=== PATIENT | female | born 1965 | race Caucasian/White ===

== ENCOUNTER → 2016-11-18 | Outpatient (CLI) | payer OTHER ==
--- NOTE | 2016-11-18 16:41 | MAMMOGRAPHY REPORT ---
BILATERAL DIGITAL SCREENING MAMMOGRAM TOMOSYNTHESIS WITH CAD: 11/18/2016 CLINICAL HISTORY: Routine screening. TECHNIQUE: Breast tomosynthesis in addition to standard 2D mammography was performed. Current study was also evaluated with a Computer Aided Detection (CAD) system. COMPARISON: Comparison is made to exams dated: 11/05/2015 mammogram, 10/26/2014 mammogram, 10/19/2013 ma mmogram, 06/23/2012 mammogram, 06/23/2011 mammogram, and 06/21/2010 mammogram - [facility]. BREAST COMPOSITION: The tissue of both breasts is extremely dense, which lowers the sensitivity of m ammography. FINDINGS: The breast parenchymal pattern is similar to prior mammograms. No new suspicious mass, arc hitectural distortion or cluster of microcalcifications is seen. IMPRESSION: ACR BI-RADS CATEGORY 1: NEGATIVE There is no mammographic evidence of malignancy. A 1 year screening mammogram is recommended. The pa tient will receive written notification of the results. Approximately 10% of breast cancers are not detected with mammography. A negative mammographic report should not delay biopsy if a clinically suggestive mass is present. Aliya Shin M.D. ay/:11/18/2016 15:54:48 Management Technician: Milind WILLIS(R)(M), [facility] letter sent: Normal 1/2 BI-RADS Code: ACR BI-RADS Category 1: Negative
== END | disposition home or self-care (01) ==
LOC: C.MAMM 10:57
PROVIDERS: ATTEND Internal Medicine
DX: Z12.31 Encounter for screening mammogram for malignant neoplasm of breast (principal)

== ENCOUNTER 2017-04-29 21:17 | Emergency (ER) | payer OTHER ==
[~2017-04-29] VITALS: Ht 168.9 cm; Wt 64.6 kg
[2017-04-29 22:02] VITALS: TEMP 36.5; Ht 168.9 cm; Wt 64.6 kg
[2017-04-29] MEDS ORDERED: XYLOCAINE 1%/SOD BICARB 20 ML VIAL INFIL ONE (22:45)
[2017-04-30 00:12] VITALS: BP 118/69; PULSE 68; O2SAT 99
--- NOTE | 2017-04-30 03:53 | EMERGENCY ROOM VISIT NOTE ---
ED Visit Note First contact with patient: 22:39 CHIEF COMPLAINT: Finger laceration HISTORY OF PRESENT ILLNESS: This 51 patient presents to the emergency department with family after cutting the right second finger and has abrasions to the hand after accidentally slicing it on building material. The bleeding has not stopped. Denies weakness or numbness of the finger. The patient has full range of motion of the fingers. The patient rates the pain as mild and 2/ 10. The patient denies any other injuries. The patient's tetanus shot is up to date. REVIEW OF SYSTEMS: A 6 system review of systems was completed with positives and pertinent negatives listed in the HPI. ALLERGIES: none MEDICATIONS: Reviewed PMH: Breast cancer SOCIAL HISTORY: No drug use PHYSICAL EXAM: Vital Signs: Reviewed Nurse's notes, vital signs stable. GENERAL : Pleasant female, in no acute distress, well developed, well nourished. SKIN: There is a 3 cm long laceration on the distal aspect of the right second finger. The edges gape apart with traction. There is no foreign material in the wound and it looks clean. There is bleeding. No deep structures such as tendons , bones, or significant blood vessels are seen in the base of the wound. Extension and flexion of the finger is full and strong. Full range of motion of the wrist and other fingers. Capillary refill less than 2 seconds. Normal sensation to light and sharp touch. Patient also superficial abrasions to the third finger and dorsal aspect of the hand without signs of infection. EMERGENCY DEPARTMENT COURSE: I examined the patient. Using sterile technique the wound was cleansed with Betadine. 2 ml of 1% buffered lidocaine was used to perform a digital block to anesthetize the patient. The area was sterilely draped. Once the patient was anesthetized, the wound was copiously irrigated under pressure with sterile saline. The wound was explored and there were no deep structures injured. The laceration was repaired using 6 simple interrupted 5-0 nylon sutures. The patient tolerated the procedure well. Hemostasis was achieved. The area was cleaned with sterile saline and dressed with bacitracin ointment and bandage. Abrasions are cleansed and dressed by nursing. The patient was discharged home in good condition. DIAGNOSIS: #1 finger laceration, second right hand #2 right hand abrasions DISCHARGE INSTRUCTIONS & TREATMENT: As below Allergies Coded Allergies: Adhesives (Verified Allergy, Mild, RASH, 04/28/17) skin irritation with adhesive tape Vital Signs Date Time Temp Pulse Resp B/P (MAP) Pulse Ox O2 Delivery O2 Flow Rate FiO2 04/30/17 00:12 68 118/69 99 04/29/17 22:02 36.5 64 18 111/65 98 Room Air Departure Information Impression Primary Impression: Finger laceration Additional Impression: Hand abrasion Dispostion Home / Self-Care Condition GOOD Forms HOME CARE DOCUMENTATION FORM, IMPORTANT VISIT INFORMATION Patient Instructions [facility] Hospital, ED Abrasion, ED Laceration All Additional Instructions Keep wound clean and dry. Do not allow any crusting or dried blood to accumulate on sutures. If this occurs, use a 1:1 solution of hydrogen peroxide/ water on a Q-tip to clean the wound. Use an antibiotic ointment for 3-4 days, then let wound dry. Suture removal in 10-12 days. Return sooner for any signs of infection (increasing redness, swelling, drainage). Ice and elevate for swelling and pain. Keep covered when in sun until sutures removed then SPF 50 or higher for one year. Vitamin E oil if desired two weeks after suture removal for reduction of scar Antibiotic ointment and bandage to the areas until healed. Follow up with family doctor or return for any signs of infection (increasing redness, swelling , drainage, or fever). Keep covered when in sun until fully healed then SPF 50 or higher until scar healed. Problem Qualifiers
== END 2017-04-30 00:14 | disposition home or self-care (01) ==
LOC: C.EDB 21:18 → C.EDD 04-30 00:14
DX: S61.210A Laceration without foreign body of right index finger without damage to nail, initial encounter (principal); S60.511A Abrasion of right hand, initial encounter; W45.8XXA Other foreign body or object entering through skin, initial encounter; Z85.3 Personal history of malignant neoplasm of breast

== ENCOUNTER 2017-05-08 15:41 | Emergency (ER) | payer OTHER ==
[~2017-05-08] VITALS: Ht 167.6 cm; Wt 65.3 kg
[2017-05-08 15:55] VITALS: Ht 167.6 cm; Wt 65.3 kg
[2017-05-08] MEDS ORDERED: CEPH500C2 PO (16:14)
[2017-05-08 16:19] VITALS: BP 118/75; PULSE 65; TEMP 37; O2SAT 99
--- NOTE | 2017-05-08 20:57 | EMERGENCY ROOM VISIT NOTE ---
ED Visit Note First contact with patient: 15:58 CHIEF COMPLAINT: Suture removal. HISTORY OF PRESENT ILLNESS: Ms. Keyes is a 51-year-old white female who ambulates into the ED requesting suture removal for a right index finger laceration she sustained 9 days ago. She reports she is still having tenderness in the area of her laceration primarily when it is flexed at the DIP joint or it is struck up against something. She reports she has been seeing some mild redness of the distal finger and some mild discharge that is questionably purulent. She does feel like the laceration has been healing well and she has been cleaning the wound with peroxide. She denies fevers, chills, sweats, finger weakness/numbness/tingling. PHYSICAL EXAM: Vital Signs: Date Time Temp Pulse Resp B/P (MAP) Pulse Ox O2 Delivery O2 Flow Rate FiO2 05/08/17 15:55 37.0 65 18 118/75 99 Room Air General: 51-year-old white female in no acute distress, nontoxic appearing, afebrile and hemodynamically stable. Neurological: Awake, alert and oriented 3. Answering questions appropriately and following commands. Right Hand: No gross bony deformity. Patient's laceration is over the posterior and medial aspect of the distal phalanx. The wound itself is closed with the suture. There is a small amount of erythema over the posterior aspect of the distal phalanx and there is mild yellowish drainage that is hardened around the wound. Wound itself and remaining finger did not appear cellulitic or grossly infected. The distal phalanx was moderately tender to palpation. She had full range of motion of the MCP and the PIP joint but difficult flexing and standing the MCP joint due to pain. He was able to distinguish light sensations through all dermatomes. Capillary refill is brisk. ED COURSE: Patient is assessed as noted above. Patient's medication list was reviewed. 6 sutures were removed without any difficulty and there was no separation of the wound edges. Patient's wound was covered with small amount of antibiotic ointment and a clean dressing. Patient was educated about today's findings and instructed on her treatment plan ; she verbalized understanding and agreement with this plan. DISPOSITION: Patient discharged home in stable condition. Patient's finger did not look grossly infected. She does have breast cancer and is scheduled for chemo starting next week. I felt because the symptoms were mild and her upcoming chemotherapy that a short course of antibiotics might help the wound healing improved. CLINICAL IMPRESSION: Suture removal; Well healing laceration. PLAN: Patient was prescribed Keflex 500 mg 4 times a day for 5 days. Comfort measures, wound care and signs of infection were discussed with the patient. Patient was encouraged to follow-up with her PCP or return to the ED for any signs of worsening infection or any new/concerning symptoms.
== END 2017-05-08 16:19 | disposition home or self-care (01) ==
LOC: C.EDB 15:41 → C.EDD 16:19
DX: S61.210D Laceration without foreign body of right index finger without damage to nail, subsequent encounter (principal); X58.XXXD Exposure to other specified factors, subsequent encounter

== ENCOUNTER → 2017-07-16 | Outpatient (CLI) | payer OTHER ==
[~2017-07-16] MED LIST: TAMO20TA9 PO
[2017-07-16 14:13] VITALS: BP 123/82; PULSE 64; TEMP 37.5; O2SAT 96
--- NOTE | 2017-07-16 16:32 | Radiation Oncology Follow-Up ---
Radiation Oncology Follow-Up Date of Visit July 16, 2017. Reason For Visit One-month follow-up and cancer survivorship care plan Radiation Completion Date 06/08/17 Diagnosis (1) Malignant neoplasm of upper-outer quadrant of right breast in female, estrogen receptor positive Status: Acute Onset Date: 03/24/2017 Histology Subtype: Lobular Stage: l (A) Permanent Comment: Self detected right breast mass Status post mammography and ultrasound Status post ultrasound-guided core needle biopsy 03/24/2017 Invasive lobular carcinoma grade 2 Estrogen receptor positive, progesterone receptor positive, and HER-2/antonia negative Genetic testing BRCA1 and BRCA2 negative Status post additional biopsy of the left breast 04/06/2017, benign Status post left breast partial mastectomy and sentinel lymph node biopsy 2017 Stage pT1b [id number] Oncotype DX score of 12 Status post completion of radiation therapy June 08, 2017. She received 5130 centigrade utilizing hypo-fractionation. Last Edited By: Robyn Elizabeth on Jun 16, 2017 11:41 History of Present Illness Ms. Keyes self palpated a right breast mass. The patient was referred by her primary care physician diagnostic imaging studies. Of note, she did have a negative bilateral screening mammogram in November 2016. March 19, 2017 - unilateral right diagnostic mammogram with ultrasound - IMPRESSION: RIGHT BREAST: Findings are highly suggestive of malignancy. Histology using core biopsy is recommended at this time. March 24, 2017 - ultrasound-guided biopsy of right breast lesion, 9 to 10:00, 5 cm from nipple - invasive lobular carcinoma, grade 2. Estrogen receptor positive, progesterone receptor positive, HER-2 negative. March 31, 2017 - consultation with Dr. Odilia Rodriguez. Recommended bilateral breast MRI. If MRI is otherwise unremarkable, proceed with right breast lumpectomy/sentinel lymph node biopsy. April 02, 2017 - IMPRESSION - Left: BI-RADS 0. 1. Subcentimeter enhancing middle depth lesion at 12 o'clock, nonspecific. Evaluation limited as noted above. Second look ultrasound suggested with biopsy if visualized. If 2nd look ultrasound is unrevealing, MRI guided biopsy is suggested. 2. Adjacent middle depth 12 o'clock circumscribed 4 x 4 x 5 mm nodule, possibly an intramammary lymph node for which six-month follow up MRI suggested if biopsy of above is benign. Right: BI-RADS 6. Appropriate action is recommended. Known biopsy proved invasive lobular carcinoma is poorly delineated from marked diffuse background enhancement, possibly post biopsy inflammation. Suspected diffuse edema and upper breast inflammation post biopsy. Evaluation limited as noted above. April 06, 2017 - left breast biopsy - small fragments of breast tissue with fibrocystic changes showing apocrine metaplasia and focal adenosis with mild epithelial hyperplasia. April 07, 2017 - BRCA mutation testing - negative result. April 08, 2017 -right breast lumpectomy/SLN - invasive lobular carcinoma measuring 8 mm in the greatest dimension. Unifocal, unicentric. Grade 2. LCIS present. margins uninvolved by carcinoma, closest margin 5 mm. 5 sentinel lymph nodes were excised and negative for metastatic carcinoma. pT1bN0(sn). April 23, 2017 - medical oncology consultation with Dr. Hilda Felipe - Oncotype DX results ordered and pending. They will discuss the role of systemic therapy after results are back. Dr. Felipe recommended consideration of tamoxifen after completing radiation therapy. The Oncotype DX returned with a score of 12. She then underwent radiation therapy. Treatment was completed June 08, 2017. She received 5130 centigrade utilizing hypo-fractionation. Interim History She has been doing well over the past month. The skin irritation that occurred at the end of treatment steadily healed without difficulty. She is noted no masses or tenderness and no axillary adenopathy. She has had no swelling of her arm. She has been seen in medical oncology and started on tamoxifen. She started the medication approximately 3 days ago. She is currently denying side effects. She is scheduled to see Dr. Rodriguez and plans to have mammography scheduled through her office. She plans discussed with her other alternatives of imaging. She stated that her issues were found on ultrasound and confirmed on MRI. She will discuss that further with her at her next visit. Allergies Coded Allergies: Adhesives (Verified Allergy, Mild, RASH, 04/28/17) skin irritation with adhesive tape Home Medications Scheduled Tamoxifen (Nolvadex), 20 MG PO DAILY Review of Systems Gastrointestinal: Symptoms: WNL Oral: Symptoms: No Problems Respiratory: Symptoms: WNL Urinary: Symptoms: WNL Skin: Symptoms: No Problems Breast: Right Upper Arm Measurement: 28.0 Right Mid Arm Measurement: 23.0 Right Wrist Measurement: 15.6 Left Upper Arm Measurement: 27.4 Left Mid Arm Measurement: 21.5 Left Wrist Measurement: 15.4 Arm Dominence: Right Additional Notes: She completed a distress management report and answer "no" to all questions. Physical Exam Vital Signs Date Time Temp Pulse Resp B/P (MAP) Pulse Ox O2 Delivery O2 Flow Rate FiO2 07/16/17 14:13 37.5 64 16 123/82 96 ECOG Performance Status: 0 Fatigue: None General Appearance: no apparent distress Eyes: normal inspection, EOMI ENT: normal ENT inspection, hearing grossly normal Neck: supple, no adenopathy, thyroid normal Respiratory/Chest: lungs clear, no respiratory distress, no accessory muscle use Breast: Breast examination reveals well-healed incisions of the right breast. There are no masses or tenderness and no axillary adenopathy. There is mild resolving hyperpigmentation. There are no skin retractions or nipple changes. Using the Greenfield score cosmesis she has a good outcome. The left breast showed no masses or tenderness and no axillary adenopathy. Cardiovascular: regular rate, rhythm, no gallop, no murmur Abdomen: non tender, soft Genitourinary - Female: normal cervix Extremities: no pedal edema Neurologic/Psychiatric: no motor/sensory deficits, alert, normal mood/affect Skin: warm/dry Pain Management Patient Reports Pain: No Initial Pain Intensity: 0.0 Pain Management Plan She denies pain therefore requires no pain management. Laboratory Laboratory Results: not applicable Pathology Pathology Results: were reviewed, and pertinent findings noted in HPI Imaging Imaging Studies: were reviewed, and pertinent findings noted in HPI Assessment & Plan Plan: Continue regular follow-up with medical oncology and her breast surgeon. She continues regular follow-up with her primary care providers. She is going to continue on the tamoxifen. She is going to discuss follow-up imaging with Dr. Rodriguez at her next visit. She will be seeing her August 11, 2017. She has a follow-up appointment with Dr. Felipe on August 06, 2017. Today we completed a cancer survivorship care plan. A copy of the document was given to the patient. She was given a survivorship booklet. We asked her to return to our office in 6 months. She may call if she has any questions or concerns in the interim. Total Time In Follow-Up I spent 20 minutes speaking to the patient in performing examination. I spent 20 minutes reviewing information, preparing the survivorship document, and completing this note. Copy To Odilia Rodriguez MD; Hilda Felipe MD; Merle Ayala M.D.
== END | disposition home or self-care (01) ==
LOC: C.ONC 14:05
PROVIDERS: ATTEND Physician Assistant Medical
DX: Z08 Encounter for follow-up examination after completed treatment for malignant neoplasm (principal); Z92.3 Personal history of irradiation; Z85.3 Personal history of malignant neoplasm of breast

== ENCOUNTER 2020-10-17 01:10 | Observation (INO) ==
[2020-10-17] MEDS ORDERED: METOPROLOL TARTRATE 1 MG/ML VIAL IV STA (01:29)
[2020-10-17] MEDS ORDERED: SODIUM CHLORIDE 0.9% 1000ML 1,000 ML IV ONE (01:29)
--- NOTE | 2020-10-17 01:31 | Emergency Department Note ---
Impression & Plan New onset a-fib, Atrial fibrillation with controlled ventricular rate, Hypomagnesemia ED Provider Note Name: LEIGH ANN SEPULVEDA Age: 55 Sex: F Arrives Via: Walk-In Informant: Patient ED Provider: Sampson Mcleod MD Chief Complaint: palpitations Impression: See above Medical Decision Makin yr old female with history of breast ca s/p resection/radiation on tamoxifen arrives with palpitations starting 10pm on 10/16/20 after long stressful day. Afib on EKG with HR 90s-110s on monitor and patient symptomatic. Given IV fluids, lopressor 5mg iv, and mag without conversion though HR improved. Labs otherwise OK besides hypomag. Patient active person who is having symptomatic afib despite rate control. Reviewed with Cardiology and advised heparin, hos pitalization and echo in am. Patient agreeable to this and reviewed with hospitalist. No evidence PE, Dissection, ACS, nor myocarditis. Heparin started after verbal consent and reviewing risks/contraindications. No recent headaches, head injury, abdominal pains, black/bloody stools, PUD, etc. Prior Medical Record and Triage/Nursing Notes reviewed by Me Differentials:Premature contractions, electrolyte abnormality, cardiac dysrhythmia, thyroid dysfunction, pulmonary embolism, infection, gastrointestinal, as well as other pathologies. Vital Signs: reviewed and remarkable for no significant abnormalities Interventions: saline lock, nss bolus, lopressor 5mg iv, magnesium 1gm iv, heparin iv Labs:Reviewed and remarkable for hypomag Imaging:X ray results are stated below per my interpretation: Chest: 1 view: No infiltrate, no effusion, normal cardiac border. EKG:Per My Interpretation: Indication Palpitations: Afib 89 bpm, qtc 425. No Ectopy. No Ischemia though mild st depressions inferior/lateral. No previous for comparison. Cardiac/Tele Monitoring: Cardiac Monitoring: An Order was placed for continuous cardiac monitoring. The monitor shows a rate of 90 with a irregular rhythm. Consults:Dr Johnson Cardiology, Dr Cowan Hospitalist Plan: Disposition:Hospitalization. Condition: Good History of Present Illness:55 yr old female arrives for evaluation of palpations. 10 pm acute palpations and lightheaded. She notes inciting event was talking with daughter who is in [place] and stressed. Patient denies chest pain, sob, syncope, leg swelling, calf pain, nausea, vomiting, back pain, headache, neck pain, fevers, chills, nor other symptoms. No medications taken for this. Tried relaxing and breathing exercises without improvement. Nothing makes better nor worse. Denies trauma, injuries, falls. No etoh nor drugs. No history of palpitations. No cardiac history. No history of chemotherapy. Did previously have surgery/radiation for breast cancer and is on tamoxifen. ROS: See above HPI for pertinent positives & negatives. A total of 10 systems reviewed and were otherwise negative. 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 EYES: No scleral icterus, unremarkable pupils. ENT: Mucous membranes moist, no nasal congestion. NECK: No masses appreciated, nomeningismus, trachea is midline. RESPIRATORY: No dyspnea. Clear to auscultation and equal bilaterally. No wheeze, no rhonchi. CARDIOVASCULAR: Tachy, irregular.No murmurs, rubs, gallops appreciated. GASTROINTESTINAL: Abdomen soft, non-tender, no peritonitis.Bowel sounds positive.No masses appreciated. BACK: No midline tenderness, no CVA tenderness EXTREMITIES: Normal motion all extremities, no cyanosis, no edema. NEUROLOGIC: Alert and oriented, no acute motor or sensory deficits, no focal weakness, cranial nerves grossly intact. SKIN: No rash, no jaundice, no diaphoresis. PSYCH: Appropriate GCS: 15 ED Course: Times/Reassessments: stable, HR improved though still notes feeling fluttering in chest. Sampson Mcleod MD Past Med/Surg History Medical History (Updated 10/17/20 @ 07:02 by Sampson Mcleod MD) Breast cancer Social History (System 09/13/19 @ 08:34 by Sussy Arreguin) Smoking Status: Never smoker Feels Safe at Home: Yes Allergies Allergies Allergy/AdvReac Type Severity Reaction Status Date / Time adhesive Allergy Mild RASH Verified 09/13/19 08:34 Home Meds Home Medications Medication Instructions Recorded Confirmed glucosamine-chondroitin 167 mg-133 1 cap PO DAILY 08/13/18 10/17/20 mg capsule multivitamin with minerals-folic 0 mcg PO 3XWK 08/13/18 10/17/20 acid 200 mcg chewable tablet (Adult Multivitamin Gummies) tamoxifen 20 mg tablet 20 mg PO DAILY 08/13/18 10/17/20 Results & Data (ED) Vital Signs Vital Signs - 24 hr 10/17/20 01:13 10/17/20 02:13 10/17/20 03:21 Temperature 36.6 C Temperature Source Temporal Artery Scan Pulse Rate 92 H Pulse Rate [Apical] 87 78 Respiratory Rate 20 16 20 Blood Pressure 144/92 H Blood Pressure [Left Arm] 126/79 133/93 Blood Pressure Mean 109 Blood Pressure Mean [Left Arm] 94 106 Pulse Oximetry 99 97 98 Oxygen Delivery Method Room Air Room Air Room Air Sepsis Recent Fever Within 48 Hours No Sepsis New/Unexplained Change in Mental Status N/A Sepsis Action Taken by Nursing No Action Required Laboratory Data Result diagrams: 10/17/20 01:29 10/17/20 01:29 Lab Results 10/17/20 10/17/20 10/17/20 Range/Units 01:29 01:29 01:29 WBC 6.30 (4.8-10.8) K/uL RBC 4.82 (4.2-5.4) M/uL Hgb 15.4 (12.0-16.0) g/dL Hct 45.0 (37-47) % MCV 93.4 (80-100) fL MCH 32.0 (25-34) pg MCHC 34.2 (32-36) g/dL RDW Std Deviation 43.6 (36.4-46.3) fL RDW Coeff of Jez 12.6 (11.5-14.5) % Plt Count 229 (130-400) K/uL MPV 9.5 (7.4-10.4) fL Immature Gran % (Auto) 0.2 % Neut % (Auto) 47.4 % Lymph % (Auto) 43.2 % Union % (Auto) 7.3 % Eos % (Auto) 1.6 % Baso % (Auto) 0.3 % Neut # (Auto) 2.99 (1.4-6.5) K/uL Lymph # (Auto) 2.72 (1.2-3.4) K/uL [place] # (Auto) 0.46 (0.11-0.59) K/uL Eos # (Auto) 0.10 (0-0.5) K/uL Baso # (Auto) 0.02 (0-0.2) K/uL Immature Gran # (Auto) 0.01 (0.00-0.02) K/uL PT 10.4 (9.0-12.0) Seconds INR 1.0 (0.9-1.1) APTT 26.8 (21.0-31.0) Seconds PTT Ratio 1.0 D-Dimer < 190 (0-500) ug/L FEU Sodium 143 (136-145) mmol/L Potassium 3.3 L (3.5-5.1) mmol/L Chloride 110 H (98-107) mmol/L Carbon Dioxide 29 (21-32) mmol/L Anion Gap 4.0 (3-11) BUN 15 (7-18) mg/dl Creatinine 0.79 (0.6-1.2) mg/dl Est Cr Clr Drug Dosing 77.1 ml/min Est GFR ( Amer) 99.1 ml/min Est GFR (Non-Af Amer) 85.5 ml/min BUN/Creatinine Ratio 18.8 (10-20) Glucose 93 (70-99) mg/dl Calcium 8.8 (8.5-10.1) mg/dl Magnesium 1.5 L (1.8-2.4) mg/dl Total Bilirubin 0.6 (0.2-1) mg/dl Direct Bilirubin 0.1 (0-0.2) mg/dl AST 24 (15-37) U/L ALT 23 (12-78) U/L Alkaline Phosphatase 74 (45-117) U/L Troponin I < 0.015 (0-0.045) ng/ml Total Protein 7.3 (6.4-8.2) gm/dl Albumin 3.7 (3.4-5.0) gm/dl TSH 4.850 H (0.300-4.500) uIu/ml Free T4 1.11 (0.8-1.6) ng/dl Urine Color Urine Appearance (Clear) Urine pH (4.5-7.5) Ur Specific [place] (1.000-1.030) Urine Protein (Negative) Urine Glucose (UA) (Negative) Urine Ketones (Negative) Urine Blood (Negative) Urine Nitrite (Negative) Urine Bilirubin (Negative) Urine Urobilinogen (Negative) Ur Leukocyte Esterase (Negative) COVID-19 Eval Order SARS-CoV-2 (PCR) (Negative) 10/17/20 10/17/20 10/17/20 Range/Units 03:00 03:00 03:17 WBC (4.8-10.8) K/uL RBC (4.2-5.4) M/uL Hgb (12.0-16.0) g/dL Hct (37-47) % MCV (80-100) fL MCH (25-34) pg MCHC (32-36) g/dL RDW Std Deviation (36.4-46.3) fL RDW Coeff of Jez (11.5-14.5) % Plt Count (130-400) K/uL MPV (7.4-10.4) fL Immature Gran % (Auto) % Neut % (Auto) % Lymph % (Auto) % [place] % (Auto) % Eos % (Auto) % Baso % (Auto) % Neut # (Auto) (1.4-6.5) K/uL Lymph # (Auto) (1.2-3.4) K/uL [place] # (Auto) (0.11-0.59) K/uL Eos # (Auto) (0-0.5) K/uL Baso # (Auto) (0-0.2) K/uL Immature Gran # (Auto) (0.00-0.02) K/uL PT (9.0-12.0) Seconds INR (0.9-1.1) APTT (21.0-31.0) Seconds PTT Ratio D-Dimer (0-500) ug/L FEU Sodium (136-145) mmol/L Potassium (3.5-5.1) mmol/L Chloride (98-107) mmol/L Carbon Dioxide (21-32) mmol/L Anion Gap (3-11) BUN (7-18) mg/dl Creatinine (0.6-1.2) mg/dl Est Cr Clr Drug Dosing ml/min Est GFR ( Amer) ml/min Est GFR (Non-Af Amer) ml/min BUN/Creatinine Ratio (10-20) Glucose (70-99) mg/dl Calcium (8.5-10.1) mg/dl Magnesium (1.8-2.4) mg/dl Total Bilirubin (0.2-1) mg/dl Direct Bilirubin (0-0.2) mg/dl AST (15-37) U/L ALT (12-78) U/L Alkaline Phosphatase (45-117) U/L Troponin I (0-0.045) ng/ml Total Protein (6.4-8.2) gm/dl Albumin (3.4-5.0) gm/dl TSH (0.300-4.500) uIu/ml Free T4 (0.8-1.6) ng/dl Urine Color Yellow Urine Appearance Clear (Clear) Urine pH 8.0 H (4.5-7.5) Ur Specific [place] 1.006 (1.000-1.030) Urine Protein Negative (Negative) Urine Glucose (UA) Negative (Negative) Urine Ketones Trace H (Negative) Urine Blood Negative (Negative) Urine Nitrite Negative (Negative) Urine Bilirubin Negative (Negative) Urine Urobilinogen Negative (Negative) Ur Leukocyte Esterase Negative (Negative) COVID-19 Eval Order Covid19 at [facility] SARS-CoV-2 (PCR) NEGATIVE (Negative) Administered Medications Heparin Sodium/Dextrose (Heparin Sodium/Dextrose) 25,000 units in 500 mls @ 22 mls/hr IV .[id number] [facility]; Protocol Stop: 11/16/20 03:59 Last Admin: 10/17/20 04:13 Dose: 1,100 units/hr, 22 mls/hr Documented by: [id number] Cosigned by: [id number] Potassium Chloride 40 meq/ (Dextrose/Sodium Chloride) 1,000 ml in 1,020 mls @ 60 mls/hr IV .Q17H ONE Stop: 10/17/20 21:29 Last Admin: 10/17/20 06:09 Dose: 60 mls/hr Documented by: [id number] Discontinued Medications Heparin Sodium (Porcine) (Heparin Sod (Porcine) 1000 Unit/Ml) 1 units IV NOW ONE Stop: 10/17/20 03:48 Last Admin: 10/17/20 04:14 Dose: Not Given Documented by: [id number] Heparin Sodium (Porcine) (Heparin Sod (Porcine) 1000 Unit/Ml) 5,000 units IV NOW ONE Stop: 10/17/20 04:16 Last Admin: 10/17/20 04:12 Dose: 5,000 units Documented by: [id number] Cosigned by: [id number] Heparin Sodium/Dextrose (Heparin Iv Adult Wt-Based Standard With Bolus Protocol) 1 ea IV NOW STA; Protocol Stop: 10/17/20 03:32 Last Admin: 10/17/20 04:14 Dose: Not Given Documented by: [id number] Sodium Chloride (Nss 1000ml) 1,000 mls @ 999 mls/hr IV .Q1H1M ONE Stop: 10/17/20 02:29 Last Infusion: 10/17/20 03:00 Dose: 0 mls/hr Documented by: [id number] Admin: 10/17/20 01:59 Dose: 999 mls/hr Documented by: [id number] Magnesium Sulfate/Dextrose (Magnesium Sulfate / D5w) 1 gm in 100 mls @ 100 mls/hr IV NOW STA Stop: 10/17/20 02:57 Last Infusion: 10/17/20 03:13 Dose: 0 mls/hr Documented by: [id number] Admin: 10/17/20 02:13 Dose: 100 mls/hr Documented by: [id number] Magnesium Sulfate/Dextrose (Magnesium Sulfate / D5w) 1 gm in 100 mls @ 50 mls/hr IV ONE ONE Stop: 10/17/20 05:45 Last Infusion: 10/17/20 06:41 Dose: 0 mls/hr Documented by: [id number] Admin: 10/17/20 04:13 Dose: 50 mls/hr Documented by: [id number] Metoprolol Tartrate (Metoprolol Tartrate 1 Mg/Ml Vial) 5 mg IV NOW STA Stop: 10/17/20 01:30 Last Admin: 10/17/20 01:55 Dose: 5 mg Documented by: [id number] Metoprolol Tartrate (Metoprolol Tartrate 25 Mg Tab) 25 mg PO NOW STA Stop: 10/17/20 03:32 Last Admin: 10/17/20 03:49 Dose: 25 mg Documented by: [id number] Potassium Chloride (Potassium Chloride Crtab 20 Meq Tabcr) 40 meq PO NOW STA Stop: 10/17/20 03:47 Last Admin: 10/17/20 04:59 Dose: 40 meq Documented by: [id number] Potassium Chloride (Potassium Chloride Crtab 20 Meq Tabcr) 40 meq PO NOW STA Stop: 10/17/20 05:23 Last Admin: 10/17/20 05:28 Dose: 40 meq Documented by: [id number] Discharge Plan Visit Data Chief Complaint: Arrhythmia/Palpitations Stated Complaint: IRREGULAR HEART BEAT,PAIN ED Provider: Sampson Mcleod Discharge Problem: New onset a-fib, Atrial fibrillation with controlled ventricular rate, Hypoma gnesemia Patient Disposition: Admitted As Inpatient Discharge Instructions Interventions: ED Discharge Assessment Last Done: 10/17/20 06:48
[2020-10-17 01:38] LABS: Basophils # (auto) 0.02 K/uL (0-0.2); Basophils % (auto) 0.3 %; Eosinophils % (auto) 1.6 %; Hemoglobin 15.4 g/dL (12.0-16.0); Immature Granulocytes # (auto) 0.01 K/uL (0.00-0.02); Immature Granulocytes % (auto) 0.2 %; Lymphocytes # (auto) 2.72 K/uL (1.2-3.4); Lymphocytes % (auto) 43.2 %; Mean Corpuscular Hgb Conc 34.2 g/dL (32-36); Mean Corpuscular Volume 93.4 fL (80-100); Mean Platelet Volume 9.5 fL (7.4-10.4); Monocytes # (auto) 0.46 K/uL (0.11-0.59); Monocytes % (auto) 7.3 %; Neutrophils # (auto) 2.99 K/uL (1.4-6.5); Neutrophils % (auto) 47.4 %; Platelet Count 229 K/uL (130-400); RDW Coefficient of Variation 12.6 % (11.5-14.5); RDW Standard Deviation 43.6 fL (36.4-46.3); Red Blood Count 4.82 M/uL (4.2-5.4)
[2020-10-17 01:51] LABS: D Dimer < 190 ug/L FEU (0-500); Partial Thromboplastin Time 26.8 Seconds (21.0-31.0); Prothrombin Time 10.4 Seconds (9.0-12.0)
[2020-10-17 01:55] LABS: Alanine Aminotransferase 23 U/L (12-78); Albumin Level 3.7 gm/dl (3.4-5.0); Aspartate Aminotransferase 24 U/L (15-37); BUN Creatinine Ratio 18.8 (10-20); Bilirubin Direct 0.1 mg/dl (0-0.2); Blood Urea Nitrogen 15 mg/dl (7-18); Calcium 8.8 mg/dl (8.5-10.1); Carbon Dioxide 29 mmol/L (21-32); Chloride 110 mmol/L (98-107); Creatinine Clr Calc Pharmacy 77.1 ml/min; Est GFR (African American) 99.1 ml/min; Est GFR (Non-African American) 85.5 ml/min; Glucose 93 mg/dl (70-99); Magnesium 1.5 mg/dl (1.8-2.4); Potassium 3.3 mmol/L (3.5-5.1); Sodium 143 mmol/L (136-145)
[2020-10-17] MEDS ORDERED: MAGNESIUM SULFATE / D5W 1 GM/100 ML BAG IV STA (01:58)
[2020-10-17 02:06] LABS: Alkaline Phosphatase 74 U/L (45-117); Bilirubin,Total 0.6 mg/dl (0.2-1); Total Protein 7.3 gm/dl (6.4-8.2); Troponin I < 0.015 ng/ml (0-0.045)
[2020-10-17] MEDS ORDERED: Heparin IV Adult Wt-Based Standard WITH Bolus Protocol IV STA (03:31)
[2020-10-17] MEDS ORDERED: METOPROLOL TARTRATE 25 MG TAB PO STA (03:31)
[2020-10-17 03:38] LABS: Appearance Urine Clear (Clear); Bilirubin Urine Negative (Negative); Blood Urine Negative (Negative); Color Urine Yellow; Glucose Urine UA Negative (Negative); Ketones Urine Trace (Negative); Leukocyte Esterase Urine Negative (Negative); Nitrite Urine Negative (Negative); Protein Urine Negative (Negative); Specific Gravity Urine 1.006 (1.000-1.030); Urobilinogen Urine Negative (Negative)
[2020-10-17] MEDS ORDERED: POTASSIUM CHLORIDE CRTAB 20 MEQ TABCR PO STA ×2 (03:46→05:22)
[2020-10-17] MEDS ORDERED: MAGNESIUM SULFATE / D5W 1 GM/100 ML BAG IV ONE (03:46)
[2020-10-17] MEDS ORDERED: HEPARIN SOD (PORCINE) 1000 UNIT/ML IV ONE ×2 (03:47→04:15)
[2020-10-17] MEDS ORDERED: HEPARIN SODIUM/DEXTROSE 25,000 UNITS/500 ML BAG IV SCH (04:00)
--- NOTE | 2020-10-17 04:10 | History & Physical Report ---
Date of Service October 17, 2020 Assessment & Plan (1) Atrial fibrillation with controlled ventricular rate: Plan: New onset right breast cancer status post surgery, radiation on tamoxifen Rx. Hypokalemia, hypomagnesemia OBS as per case management PCU Lopressor for rate control Cardiology consult RE new onset A. fib (ER provider already in touch with Dr. Johnson who recommends IV heparin, possible cardioversion in a.m. if patient does not convert to NSR.) Replace electrolytes DVT prophylaxis. Heparin Full code Text document was generated using Dyn voice recognition software. It may contain grammatical or spelling errors. Kindly contact undersigned for clarification of any documentation item in question. History of Present Illness Chief Complaint: Palpitations, lightheadedness Primary Care Provider: Merle Ayala MD History obtained from patient and records. Medical history significant for right breast cancer status post surgery, radiation on tamoxifen Rx. Patient experienced palpitations with lightheadedness last night. No chest pain, no S OB. Stressful phone call with her daughter currently vacationing in [facility]. In retrospect, episodic palpitations which can be likened to a 'purring' sensation in more than a year. Not as pronounced however as per patient. At the ER, patient noted to be in atrial fibrillation. IV Lopressor and IV heparin initiated at the ER. 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, [employer] Allergies Allergy/AdvReac Type Severity Reaction Status Date / Time adhesive Allergy Mild RASH Verified 09/13/19 08:34 Home Medications Medication Instructions Recorded Confirmed Type glucosamine-chondroitin 167 mg-133 1 cap PO DAILY 08/13/18 10/17/20 History mg capsule multivitamin with minerals-folic 0 mcg PO 3XWK 08/13/18 10/17/20 History acid 200 mcg chewable tablet (Adult Multivitamin Gummies) tamoxifen 20 mg tablet 20 mg PO DAILY 08/13/18 10/17/20 History apixaban 5 mg tablet (Eliquis) 5 mg PO BID #60 tab 10/17/20 Rx metoprolol succinate 25 mg 12.5 mg PO QAM #30 tab 10/17/20 Rx tablet,extended release 24 hr Past Med/Surg History Medical History Breast cancer Social History Smoking Status: Never smoker Feels Safe at Home: Yes Review of Systems Review of Systems: As per HPI, all 10 systems reviewed, all other ROS negative Physical Exam Physical Exam: GENERAL: Comfortable, pleasant, slightly anxious, no respiratory distress SKIN: Normal color, warm HEENT: [place] palpebral conjunctivae, no ptosis, dry buccal mucosa NECK : Supple, no tenderness CHEST : CTA, no tenderness HEART : Regular, no obvious murmurs ABDOMEN: No distention, nontender EXTREMITIES : No LE swelling/tenderness, no other conspicuous deformities noted NEUROLOGIC : Coherent, no facial asymmetry, no other gross focality Results & Data Results & Data ([facility]) Vital Signs (Past 12 Hours) Vital Signs Temp Pulse Pulse Resp BP BP Pulse Ox 10/17/20 03:21 78 20 133/93 98 10/17/20 02:13 87 16 126/79 97 10/17/20 01:13 36.6 C 92 H 20 144/92 H 99 Laboratory Results Laboratory Results WBC 6.30 K/uL (4.8-10.8) 10/17/20 01:29 RBC 4.82 M/uL (4.2-5.4) 10/17/20 01:29 Hgb 15.4 g/dL (12.0-16.0) 10/17/20 01:29 Hct 45.0 % (37-47) 10/17/20 01:29 MCV 93.4 fL (80-100) 10/17/20 01:29 MCH 32.0 pg (25-34) 10/17/20 01:29 MCHC 34.2 g/dL (32-36) 10/17/20 01:29 RDW Std Deviation 43.6 fL (36.4-46.3) 10/17/20 01:29 RDW Coeff of Jez 12.6 % (11.5-14.5) 10/17/20 01:29 Plt Count 229 K/uL (130-400) 10/17/20 01:29 MPV 9.5 fL (7.4-10.4) 10/17/20 01:29 Immature Gran % (Auto) 0.2 % 10/17/20 01:29 Neut % (Auto) 47.4 % 10/17/20: Lymph % (Auto) 43.2 % 10/17/20: [place] % (Auto) 7.3 % 10/17/20: Eos % (Auto) 1.6 % 10/17/20: Baso % (Auto) 0.3 % 10/17/20: Neut # (Auto) 2.99 K/uL (1.4-6.5) 10/17/20: Lymph # (Auto) 2.72 K/uL (1.2-3.4) 10/17/20: Martin # (Auto) 0.46 K/uL (0.11-0.59) 10/17/20: Eos # (Auto) 0.10 K/uL (0-0.5) 10/17/20: Baso # (Auto) 0.02 K/uL (0-0.2) 10/17/20: Immature Gran # (Auto) 0.01 K/uL (0.00-0.02) 10/17/20: PT 10.4 Seconds (9.0-12.0) 10/17/20: INR 1.0 (0.9-1.1) 10/17/20: APTT 26.8 Seconds (21.0-31.0) 10/17/20: PTT Ratio 1.0 10/17/20 01: D-Dimer < 190 ug/L FEU (0-500) 10/17/20 01: Sodium 143 mmol/L (136-145) 10/17/20 01: Potassium 3.3 mmol/L (3.5-5.1) L 10/17/20: Chloride 110 mmol/L (98-107) H 10/17/20: Carbon Dioxide 29 mmol/L (21-32) 10/17/20: Anion Gap 4.0 (3-11) 10/17/20: BUN 15 mg/dl (7-18) 10/17/20: Creatinine 0.79 mg/dl (0.6-1.2) 08/04/21 01:29 Est Cr Clr Drug Dosing 77.1 ml/min 10/17/20 01:29 Est GFR ( Amer) 99.1 ml/min 10/17/20 01:29 Est GFR (Non-Af Amer) 85.5 ml/min 10/17/20 01:29 BUN/Creatinine Ratio 18.8 (10-20) 10/17/20 01:29 Glucose 93 mg/dl (70-99) 10/17/20 01:29 Calcium 8.8 mg/dl (8.5-10.1) 10/17/20 01:29 Magnesium 1.5 mg/dl (1.8-2.4) L 10/17/20 01:29 Total Bilirubin 0.6 mg/dl (0.2-1) 10/17/20 01:29 Direct Bilirubin 0.1 mg/dl (0-0.2) 10/17/20 01:29 AST 24 U/L (15-37) 10/17/20 01:29 ALT 23 U/L (12-78) 10/17/20 01:29 Alkaline Phosphatase 74 U/L (45-117) 10/17/20 01:29 Troponin I < 0.015 ng/ml (0-0.045) 10/17/20 01:29 Total Protein 7.3 gm/dl (6.4-8.2) 10/17/20 01:29 Albumin 3.7 gm/dl (3.4-5.0) 10/17/20 01:29 TSH 4.850 uIu/ml (0.300-4.500) H 10/17/20 01:29 Urine Color Yellow 10/17/20 03:17 Urine Appearance Clear (Clear) 10/17/20 03:17 Urine pH 8.0 (4.5-7.5) H 10/17/20 03:17 Ur Specific [place] 1.006 (1.000-1.030) 10/17/20 03:17 Urine Protein Negative (Negative) 10/17/20 03:17 Urine Glucose (UA) Negative (Negative) 10/17/20 03:17 Urine Ketones Trace (Negative) H 10/17/20 03:17 Urine Blood Negative (Negative) 10/17/20 03:17 Urine Nitrite Negative (Negative) 10/17/20 03:17 Urine Bilirubin Negative (Negative) 10/17/20 03:17 Urine Urobilinogen Negative (Negative) 10/17/20 03:17 Ur Leukocyte Esterase Negative (Negative) 10/17/20 03:17 COVID-19 Eval Order Covid19 at [facility] 10/17/20 03:00 Diagnostic Findings Chest x-ray as per my potential hyperinflation EKG as per my interpretation : Rate 90, A. fib, normal axis, incomplete RBBB, T wave abnormalities inferior leads
[2020-10-17 04:17] LABS: T4 Free Thyroxine 1.11 ng/dl (0.8-1.6)
[2020-10-17] MEDS ORDERED: POTASSIUM CHLORIDE 40 MEQ in D5W AND 1/2NSS 1,000 ML/1,000 ML BAG IV ONE (04:30)
[2020-10-17] MEDS ORDERED: LORazepam 0.25 MG/0.5 ML VIAL IV PRN (06:42)
[2020-10-17] MEDS ORDERED: MoRPHine SULFATE 2 MG/ML CARP IV PRN (06:42)
[2020-10-17] MEDS ORDERED: ACETAMINOPHEN 325 MG TAB PO PRN (06:42)
[2020-10-17] MEDS ORDERED: traMADol HCL 50 MG TABLET PO PRN (06:42)
[2020-10-17] MEDS ORDERED: NITROGLYCERIN SL 0.4 MG/TAB TAB SL PRN (06:42)
--- NOTE | 2020-10-17 08:16 | XRay Report ---
SINGLE VIEW CHEST CLINICAL HISTORY: Palpitations. FINDINGS: 2 AP, portable, upright chest radiographs are compared to study dated 08/13/2018. The cardio mediastinal silhouette is unremarkable. The lungs appear hyperinflated, likely due to good inspirator y result. No airspace consolidation or large pleural effusion is identified. Tiny calcified granuloma s are noted. Mild apical scarring is observed. No pneumothorax is seen. The bony thorax is grossly in tact. IMPRESSION: No active disease in the chest. ACT 112: Negative or not required by law. Electronically signed by: Brian Braswell M.D. 10/17/2020 8:15 AM
[2020-10-17] MEDS ORDERED: TAMOXIFEN CITRATE 10 MG TABLET PO SCH (09:00)
--- NOTE | 2020-10-17 09:55 | Anesthesiology Consultation ---
Date of Service October 17, 2020 Assessment & Plan Chart Review Chart Review: Acceptable Risk for Surgery Consults Requested none History Surgery Operation Date: 10/17/20 09:00 Proposed Procedures p Cardioversion Naphthalene Still Operator w/Anesthesia - Greyson Johnson MD Height/Weight Height: 5 ft 6 in Weight: 63.5 kg Allergies Allergy/AdvReac Type Severity Reaction Status Date / Time adhesive Allergy Mild RASH Verified 09/13/19 08:34 Medications Home Medications Medication Instructions Recorded Confirmed Last Taken glucosamine-chondroitin 167 mg-133 1 cap PO DAILY 08/13/18 10/17/20 Unknown mg capsule multivitamin with minerals-folic 0 mcg PO 3XWK 08/13/18 10/17/20 Unknown acid 200 mcg chewable tablet (Adult Multivitamin Gummies) tamoxifen 20 mg tablet 20 mg PO DAILY 08/13/18 10/17/20 Unknown Active Medications Generic Name Dose Route Start Last Admin Trade Name Freq PRN Reason Stop Dose Admin Heparin Sodium/Dextrose 25,000 units in 500 mls @ 22 mls/hr 10/17/20 04:00 10/17/20 04:13 Heparin Sodium/Dextrose IV 11/16/20 03:59 1,100 units/hr .[id number] ROGER 22 mls/hr Administration Protocol 1,100 UNITS/HR Potassium Chloride 40 meq/ 1,000 ml in 1,020 mls @ 60 mls/hr 10/17/20 04:30 10/17/20 06:09 Dextrose/Sodium Chloride IV 10/17/20 21:29 60 mls/hr .Q17H ONE Administration NPO Date Last Intake of Fluids: 10/17/20 Time Last Intake of Fluids: 04:00 Date Last Intake of Solids: 10/16/20 Time Last Intake of Solids: 14:00 Past Medical History Medical History (Updated 10/17/20 @ 07:02 by Sampson Mcleod MD) Breast cancer Social History Smoking Status: Never smoker Physical Exam Vital Signs Last Vital Signs Temp 36.6 C 10/17/20 01:13 Pulse 93 H 10/17/20 09:42 Resp 18 10/17/20 09:42 BP 123/83 10/17/20 09:42 Pulse Ox 99 10/17/20 09:42 Testing Laboratory Results 10/17/20 01:29 10/17/20 01:29 PT 10.4 Seconds (9.0-12.0) 10/17/20 01: INR 1.0 (0.9-1.1) 10/17/20 01:29 APTT 26.8 Seconds (21.0-31.0) 10/17/20 01:29 Urine Color Yellow 10/17/20 03:17 Urine Appearance Clear (Clear) 10/17/20 03:17 Urine pH 8.0 (4.5-7.5) H 10/17/20 03:17 Ur Specific [place] 1.006 (1.000-1.030) 10/17/20 03:17 Urine Protein Negative (Negative) 10/17/20 03:17 Urine Glucose (UA) Negative (Negative) 10/17/20 03:17 Urine Ketones Trace (Negative) H 10/17/20 03:17 Urine Nitrite Negative (Negative) 10/17/20 03:17 Ur Leukocyte Esterase Negative (Negative) 10/17/20 03:17
--- NOTE | 2020-10-17 10:08 | Cardioversion ---
Date of Service October 17, 2020 Electrical Cardioversion Rpt Electrical Cardioversion Report Procedure and risks of synchronized electrical cardioversion were discussed in detail with the patient. Informed consent was obtained. Patient was sedated via anesthesia consult with continuous heart rate, blood pressure, O2 saturation, end-tidal CO2 monitoring. Single synchronized electrical cardioversion was performed using biphasic 150 J shock with successful conversion to sinus rhythm. Patient tolerated procedure well EKG post procedure sinus bradycardia with otherwise normal tracing
--- NOTE | 2020-10-17 10:31 | Cardiology Consultation ---
Date of Consultation October 17, 2020 Assessment & Plan (1) New onset a-fib: Patient is a 55-year-old female without history of structural heart disease or prior history of cardiac arrhythmias who developed sudden onset tachypalpitations approximately 10 PM last evening with ER presentation de monstrating atrial fibrillation with rapid response. Patient with low chads vas 2 score though did demonstrate 2 complaints of visual blurring approximately 1 week ago no associated tachyarrhythmias at that time. After review patient was evaluated and referred for synchronized electrical cardioversion. Procedure was uneventful and patient reverted to sinus rhythm/sinus bradycardia with single 150 J biphasic shock Plan: Begin on oral anticoagulant with Eliquis 5 mg twice per day first dose today with planned course at least 30 days Give metoprolol succinate 12.5 mg daily Follow-up cardiology 2 to 3 weeks Gradually resume activities 1 to 2 days Patient to promptly report/return any recurrence of tachypalpitations or complaints History of Present Illness Reason for Consultation: Paroxysmal atrial fibrillation, new onset Requesting Physician: Dr. Henry Attending Physician: Leidy Henry, History of Present Illness Patient is a 55-year-old female without prior history of cardiac disease presents now noting having developed symptoms of pounding and palpitations in her chest approximately 10 PM last evening. She presented promptly to the emergency room where she was found to be in atrial fibrillation with rapid response. Heart rate slowed with single dose of IV metoprolol. After discussion patient was begun on IV heparin and referred for further evaluation. She denies prior history of hypertension, diabetes mellitus, rheumatic fever scarlet fever, heart murmur. No prior history of chest pains, shortness of breath, tachypalpitations syncope or near syncope. Patient did experience 2 episodes of visual blurring approximately 1 week ago but no prior history of neurologic events. No fevers chills or unexplained infections. No bleeding difficulties. Appetite and weight have been stable. Patient very vigorous with high exercise tolerance and no limitations. No sleep disturbances. Allergies Allergy/AdvReac Type Severity Reaction Status Date / Time adhesive Allergy Mild RASH Verified 09/13/19 08:34 Home Medications Medication Instructions Recorded Confirmed Type glucosamine-chondroitin 167 mg-133 1 cap PO DAILY 08/13/18 10/17/20 History mg capsule multivitamin with minerals-folic 0 mcg PO 3XWK 08/13/18 10/17/20 History acid 200 mcg chewable tablet (Adult Multivitamin Gummies) tamoxifen 20 mg tablet 20 mg PO DAILY 08/13/18 10/17/20 History Patient History Medical History Breast cancer Social History Smoking Status: Never smoker Feels Safe at Home: Yes Review of Systems Review of Systems: All systems reviewed & are unremarkable except as noted in HPI & below Physical Exam Constitutional: WD/WN, vitals as above Eyes: PERRL, conjunctivae normal, anicteric sclerae ENMT: external ear and nose normal, oropharynx normal Neck: trachea midline, no thyromegaly Respiratory: normal respiratory effort, lungs clear to auscultation Cardiovascular: Rate/Rhythm: regular rate and regular rhythm Heart Sounds: normal S1 and normal S2; no gallop and no murmur Palpation: normal PMI Vessels: normal carotid upstroke and radial pulses present; no JVD and no carotid bruit Extremities: no edema Gastrointestinal (Abdomen): normal bowel sounds, soft, nontender, no hepatosplenomegaly Musculoskeletal: no cyanosis or clubbing, extremities motor strength 5/5 Skin: no rashes, warm and dry Neurologic: PERRL, EOMI, accommodation nl, no face palsy, no dysarthria Psychiatric: A+Ox3, euthymic affect Results & Data ([facility]) Vital Signs (Past 12 Hours) Vital Signs Temp Pulse Pulse Resp BP BP Pulse Ox 10/17/20 10:15 59 L 18 120/86 97 10/17/20 09:42 93 H 18 123/83 99 10/17/20 09:20 88 22 110/87 95 10/17/20 07:00 85 15 116/80 98 10/17/20 05:33 76 18 106/70 98 10/17/20 03:21 78 20 133/93 98 10/17/20 02:13 87 16 126/79 97 10/17/20 01:13 36.6 C 92 H 20 144/92 H 99 Laboratory Results Laboratory Results - last 24 hr 10/17/20 10/17/20 10/17/20 01:29 01:29 01:29 WBC 6.30 RBC 4.82 Hgb 15.4 Hct 45.0 MCV 93.4 MCH 32.0 MCHC 34.2 RDW Std Deviation 43.6 RDW Coeff of Jez 12.6 Plt Count 229 MPV 9.5 Immature Gran % (Auto) 0.2 Neut % (Auto) 47.4 Lymph % (Auto) 43.2 [place] % (Auto) 7.3 Eos % (Auto) 1.6 Baso % (Auto) 0.3 Neut # (Auto) 2.99 Lymph # (Auto) 2.72 [place] # (Auto) 0.46 Eos # (Auto) 0.10 Baso # (Auto) 0.02 Immature Gran # (Auto) 0.01 PT 10.4 INR 1.0 APTT 26.8 PTT Ratio 1.0 D-Dimer < 190 Sodium 143 Potassium 3.3 L Chloride 110 H Carbon Dioxide 29 Anion Gap 4.0 BUN 15 Creatinine 0.79 Est Cr Clr Drug Dosing 77.1 Est GFR ( Amer) 99.1 Est GFR (Non-Af Amer) 85.5 BUN/Creatinine Ratio 18.8 Glucose 93 Calcium 8.8 Magnesium 1.5 L Total Bilirubin 0.6 Direct Bilirubin 0.1 AST 24 ALT 23 Alkaline Phosphatase 74 Troponin I < 0.015 Total Protein 7.3 Albumin 3.7 TSH 4.850 H Free T4 1.11 Urine Color Urine Appearance Urine pH Ur Specific [place] Urine Protein Urine Glucose (UA) Urine Ketones Urine Blood Urine Nitrite Urine Bilirubin Urine Urobilinogen Ur Leukocyte Esterase COVID-19 Eval Order SARS-CoV-2 (PCR) 10/17/20 10/17/20 10/17/20 03:00 03:00 03:17 WBC RBC Hgb Hct MCV MCH MCHC RDW Std Deviation RDW Coeff of Jez Plt Count MPV Immature Gran % (Auto) Neut % (Auto) Lymph % (Auto) [place] % (Auto) Eos % (Auto) Baso % (Auto) Neut # (Auto) Lymph # (Auto) [place] # (Auto) Eos # (Auto) Baso # (Auto) Immature Gran # (Auto) PT INR APTT PTT Ratio D-Dimer Sodium Potassium Chloride Carbon Dioxide Anion Gap BUN Creatinine Est Cr Clr Drug Dosing Est GFR ( Amer) Est GFR (Non-Af Amer) BUN/Creatinine Ratio Glucose Calcium Magnesium Total Bilirubin Direct Bilirubin AST ALT Alkaline Phosphatase Troponin I Total Protein Albumin TSH Free T4 Urine Color Yellow Urine Appearance Clear Urine pH 8.0 H Ur Specific [place] 1.006 Urine Protein Negative Urine Glucose (UA) Negative Urine Ketones Trace H Urine Blood Negative Urine Nitrite Negative Urine Bilirubin Negative Urine Urobilinogen Negative Ur Leukocyte Esterase Negative COVID-19 Eval Order Covid19 at [facility] SARS-CoV-2 (PCR) NEGATIVE Diagnostic Findings Echocardiogram 10/17/2020 Normal left her size thickness and function, no valvular disease, normal left atrial size ECG Additional Comments: 17-OCT-2020 01:22:39 [facility]-EDSTAT ROUTINE RETRIEVAL Atrial fibrillation Nonspecific ST abnormality Abnormal QRS-T angle, consider primary T wave abnormality Abnormal ECG No previous ECGs available
--- NOTE | 2020-10-17 11:04 | Anesthesiology Progress Note ---
Date of Service October 17, 2020 Anesthesia Post Procedure Vital Signs Vital Signs: Temp Pulse Pulse Resp BP BP Pulse Ox 10/17/20 10:45 66 18 122/84 96 10/17/20 10:30 53 L 18 120/86 96 10/17/20 10:15 59 L 18 120/86 97 10/17/20 09:42 93 H 18 123/83 99 10/17/20 09:20 88 22 110/87 95 10/17/20 07:00 85 15 116/80 98 10/17/20 05:33 76 18 106/70 98 10/17/20 03:21 78 20 133/93 98 10/17/20 02:13 87 16 126/79 97 10/17/20 01:13 36.6 C 92 H 20 144/92 H 99 Transfer of Care Handoff Completed per policy Notes Mental Status: alert / awake / arousable and participated in evaluation Patient Amnestic to Procedure: Yes Nausea / Vomiting: adequately controlled Pain: adequately controlled Airway Patency, RR, SpO2: stable & adequate BP & HR: stable & adequate Hydration State: stable & adequate Anesthetic Complications: no major complications apparent
--- NOTE | 2020-10-17 12:04 | Discharge Summary ---
Date of Service October 17, 2020 Admission HPI Per Admitting Provider Chief Complaint: Palpitations, lightheadedness Primary Care Provider: Merle Ayala MD History obtained from patient and records. Medical history significant for right breast cancer status post surgery, radiation on tamoxifen Rx. Patient experienced palpitations with lightheadedness last night. No chest pain, no S OB. Stressful phone call with her daughter currently vacationing in [place]. In retrospect, episodic palpitations which can be likened to a 'purring' sensation in more than a year. Not as pronounced however as per patient. At the ER, patient noted to be in atrial fibrillation. IV Lopressor and IV heparin initiated at the ER. Admission Exam Per Admitting Provider GENERAL: Comfortable, pleasant, slightly anxious, no respiratory distress SKIN: Normal color, warm HEENT: [place] palpebral conjunctivae, no ptosis, dry buccal mucosa NECK : Supple, no tenderness CHEST : CTA, no tenderness HEART : Regular, no obvious murmurs ABDOMEN: No distention, nontender EXTREMITIES : No LE swelling/tenderness, no other conspicuous deformities noted NEUROLOGIC : Coherent, no facial asymmetry, no other gross focality Principal Diagnosis New onset atrial fibrillation s/p cardioversion Discharge Exam CONSTITUTIONAL: WNWD, vitals as above, generally well-appearing EYES: normal conjunctivae, no scleral icterus ENT: external ear and nose normal, MMM RESPIRATORY: clear to auscultation bilaterally, no crackles, rales or wheezes, normal respiratory effort CARDIOVASCULAR: regular rate and rhythm, S1 and 2 heard without murmurs, gallops or rubs, no JVD, no peripheral edema, 2+ CHEST: inspection of chest was normal (+pacemaker, +port) GASTROINTESTINAL: normal bowel sounds, soft, nontender, no hepatomegaly, no guarding MUSCULOSKELETAL: strength 5/5 throughout, head is normocephalic and atraumatic, neck supple, normal palpation of chest wall without tenderness SKIN: warm and dry, no rashes NEUROLOGIC: patellar DTRs 2+ bilat. PERRL, EOMI, no facial palsy, no dysarthria. Touch, pain and proprioception normal. CN 2-12 grossly intact, no sensory deficit, normal cognition, normal speech, no tremor PSYCHIATRIC: alert cooperative and oriented to person, place and time. Euthymic mood, makes good eye contact, language grossly intact, recent and remote memory grossly intact. LYMPHATIC: no LAD Discharge Data Allergies Allergy/AdvReac Type Severity Reaction Status Date / Time adhesive Allergy Mild RASH Verified 09/13/19 08:34 Consultations 10/17/20 03:31 ED Decision to Admit Stat 10/17/20 06:42 Consult Cardiology Routine Procedures Performed Operation Date: 10/17/20 09:00 Actual Procedures p Cardioversion - Greyson Johnson MD Hospital Course (1) Atrial fibrillation with controlled ventricular rate: The patient is a 55-year-old female without a history of structural heart disease or prior history of cardiac arrhythmias who developed sudden onset tachypalpitations and was found to have new onset atrial fibrillation with rapid ventricular response. Echocardiogram performed revealed no regional wall motion abnormalities, ejection fraction 50 to 55% with normal left regular wall thickness and a normal left atrial size. There was no significant valvular disease seen. On arrival to the ER CBC was normal BMP revealed potassium of 3.3 and a magnesium of 1.5 but otherwise was normal. Potassium and magnesium replacement, respectively, was given. TSH noted to be 4.85 with a normal free T4 1.1. She had a normal urinalysis with no evidence of infection or blood. COVID-19 screening was negative. A chest x-ray was performed revealing no active disease in the chest. Cardiology was consulted and she was referred for immediate synchronized electrical cardioversion. This was performed on 10/17/[address] Greyson Johnson of [facility]. The procedure was uneventful and the patient reverted to sinus rhythm/sinus bradycardia with a single 150 J biphasic shock. She was started on oral anticoagulant with Eliquis 5 mg twice daily and metoprolol succinate 12.5 mg daily. She was instructed to follow-up with cardiology in 2 to 3 weeks and gradually resume activities over the next 1 to 2 days. At time of discharge she was hemodynamically stable and afebrile and tolerating p.o. She was mentating and ambulating at baseline and discharged home in stable condition with close primary care follow-up recommended. Total Time Total Time Spent Total Time Spent (In Minutes): 60 Discharge Plan Discharge Items Patient Disposition: Home - Self-Care Reason For Visit: AF Discharge Diagnosis: New onset atrial fibrillation Condition on Discharge: Good Activity: Resume your previous activity Non-emergency contact: Primary Care Provider Call non-emergency contact if: you have any medication questions, your symptoms worsen, your pain is not controlled, your pain is worsening, your pain is unusual for you, your pain is concerning for you and you have a fever Follow-up/Referrals: Merle Ayala MD [Primary Care Provider] - Diet: Regular Addtl Attending Provider Instructions: Please take all medications as instructed on discharge list below. You are being placed on a low dose beta norm to control your heart rate called Metoprolol. Please take 12.5mg (1/2 tab) daily. You are being placed on a blood thinner called apixaban which will help prevent blood clot formation after a cardioversion. Please take this twice daily until otherwise instructed. You may been additional refills for both of these medications through your primary care provider or your snout puller. While on apixaban, to reduce the risk of bleeding, please avoid non-steroidal anti-inflammatory drugs (NSAIDs) such as Motrin, Ibuprofen, Naproxen, Aleve, or aspirin. As discussed, there is no reversal agent for this medication. If you have a concern about bleeding please seek immediate medical attention. It is recommended that you follow up with your primary care provider within one week of discharge to ensure you are still doing well after discharge home. This will also be important to check your blood pressure and heart rate on these new medications. Please contact [facility] for a follow-up appointment in 4-6 weeks. It was a pleasure taking care of you! Please call if you have any questions or problems. You can reach a [facility] hospitalist on duty at [facility] 24 hours a day by calling [phone]. Take care of yourself. Leidy Henry, DO [facility] Center[facility] Pending Studies at Discharge: Yes Stand-Alone Forms: [facility] Medications and DC Order Prescriptions: New metoprolol succinate 25 mg Tablet Extended Release 24 Hr 12.5 mg PO QAM Qty: 30 RF: 0 Eliquis 5 mg Tablet 5 mg PO BID Qty: 60 RF: 0 Continued tamoxifen 20 mg tablet 20 mg PO DAILY RF: 0 glucosamine-chondroitin 167-133 mg Capsule 1 cap PO DAILY RF: 0 Adult Multivitamin Gummies 200 mcg Tablet,Chewable 0 mcg PO 3XWK RF: 0 Discharge Orders: Discharge Order (Routine); Ordered 10/17/20 Ordered By: Leidy Henry Admission Data Admit Date/Time: 10/17/20 05:19 Attending Provider: Leidy Henry Admit Provider: Johnnie Cowan Primary Care Provider: Merle Ayala Other Providers: Johnnie Cowan ; Grayson Estrada ; Musa Glover ; Greyson Johnson ; Jordi Stewart ; Fuentes Iyer ; Fran Pereira ; Jessica Dennison ; Magaly Walker ; Marina Fair ; Silas Rhodes Other Interventions: Discharge Summary Assessment (RN) Last Done: 10/17/20 12:42
[2020-10-17] MEDS ORDERED: APIXABAN 5 MG TABLET PO SCH (12:15)
[2020-10-18] MEDS ORDERED: METOPROLOL SUCC 25MG EXT REL TAB PO SCH (09:00)
--- NOTE | 2020-10-19 06:35 | Electrocardiogram Report ---
Test Reason : Blood Pressure : / mmHG Vent. Rate : 089 BPM Atrial Rate : 208 BPM P-R Int : 000 ms QRS Dur : 070 ms QT Int : 350 ms P-R-T Axes : 000 076 -12 degrees QTc Int : 425 ms Atrial fibrillation Nonspecific ST and T wave abnormality Abnormal ECG No previous ECGs available Confirmed by Christopher Razo ([id number]) on 10/19/2020 6:34:37 AM Referred By: REFERRED SELF Confirmed By:Christopher Razo
--- NOTE | 2020-10-19 08:45 | Electrocardiogram Report ---
Test Reason : Blood Pressure : / mmHG Vent. Rate : 053 BPM Atrial Rate : 053 BPM P-R Int : 160 ms QRS Dur : 068 ms QT Int : 440 ms P-R-T Axes : 053 075 053 degrees QTc Int : 412 ms Sinus bradycardia Otherwise normal ECG When compared with ECG of 17-OCT-2020 01:22, Sinus rhythm has replaced Atrial fibrillation Vent. rate has decreased BY 36 BPM Non-specific change in ST segment in Inferior leads ST no longer depressed in Anterolateral leads T wave inversion no longer evident in Inferior leads Confirmed by Christopher Razo ([id number]) on 10/19/2020 8:44:54 AM Referred By: REFERRED SELF Confirmed By:Christopher Razo
== END 2020-10-17 12:40 | disposition home or self-care (01) ==
LOC: EDINP 01:10 → ED 01:10 → EDINP 06:48